=== PATIENT | female | born 1995 | race Caucasian/White ===

== ENCOUNTER 2018-07-02 19:02 | Emergency (ER) | payer OTHER ==
--- NOTE | 2018-07-02 19:26 | EDPHY ---
H & P Time Seen by Provider: 07/02/18 19:13 HPI/ROS: HPI Wrist pain. Needs a work note. 23-year-old female. She is right-hand dominant. She presents to the emergency department by private vehicle. She reports that on March [id number] while living in [place] she fell backwards on outstretched and dorsiflex wrists and hands. He sustained injuries to both wrists. No fracture was clearly identified. She continues to have pain in the right wrist made worse with dorsiflexion of the right wrist. She is asking for a work note the documents that these injuries did not occur her at her current job and that there is no evidence of significant injury. She denies any new trauma or new wrist pain. ROS: Constitutional: No fever, no chills. No weakness. Musculoskeletal: No back pain. No neck pain. As above. Skin: No rashes. Neurological: No headache. No focal weakness or altered sensation. Past medical history: Cholecystectomy, . Social history: Nonsmoker. She is here by herself. No alcohol. Physical Exam: General Appearance: Alert, no distress. This patient is responding to questions appropriately and in full sentences. This patient appears well- hydrated and well-nourished. Head: Normocephalic atraumatic. Eyes: Pupils equal and round no pallor or injection. No lid edema, erythema or injection. Right hand and wrist exam: The skin is closed. The soft tissues are normal. She has some vague and mild pain over the distal radial dorsal aspect on palpation. This is made more uncomfortable with dorsiflexion. She has no snuffbox tenderness on palpation. No pain elicited by axial compression of her right thumb. The bony aspects of the right hand and wrist are otherwise nontender on palpation. No bony deformity noted on palpation. No ecchymosis, edema, erythema, warmth noted. The right hand, wrist and upper extremity are neurovascularly intact. Left hand and wrist exam: No bony tenderness on palpation. No deformity noted. No pain on Melara or palmar flexion of the right wrist. No concerning soft tissue changes. The left hand and upper extremity are neurovascularly intact. Neurological: Motor sensory function is grossly intact. Cranial nerves are normal. Gait is normal. Skin: Warm and dry, no rashes. Extremities are symmetrical. All joints range without pain or impingement except noted. Psychiatric: No agitation. No depression. Database: EKG: Imaging: Right wrist x-ray series: Negative for fracture, subluxation, dislocation. Interpreted by me. Procedures: Emergency department course: Triage vital signs reviewed. Patient was sent for right wrist x-ray series: 7:35 p.m., the patient was re-evaluated, resting comfortably at this time. Results of her x-rays discussed. I explained to her that I would document that she does not have any radiographic evidence of significant injury to her right wrist. She feels comfortable being discharged. Follow-up and return to emergency department precautions were reviewed with her. All of her questions were answered. She was discharged from the emergency department in good condition. Differential Diagnosis: The differential diagnosis on this patient includes but is not limited to right wrist arthritis, right wrist sprain. Navicular/scaphoid bone fracture, acute fracture subluxation, dislocation, carpal tunnel syndrome unlikely. This represents a partial list of diagnoses considered. These considerations are based on history, physical exam, past history, reassessment and diagnostic testing. Smoking Status: Current every day smoker Constitutional: Initial Vital Signs Temperature (C) 36.9 C 07/02/18 19:09 Heart Rate 100 07/02/18 19:09 Respiratory Rate 16 07/02/18 19:09 Blood Pressure 122/84 H 07/02/18 19:09 O2 Sat (%) 95 07/02/18 19:09 O2 Delivery Mode Room Air Allergies/Adverse Reactions: No Known Allergies Allergy (Unverified 07/02/18 19:15) Home Medications: Medication Instructions Recorded NK [No Known Home Meds] 07/02/18 Medical Decision Making - Diagnostics Imaging Results: Imaging Impressions Wrist X-Ray 07/02/18 19:17 Impression: Negative right hand radiographs. No fracture or periostitis identified. Comment: If prior films become available, direct comparison can be made. Departure - Departure Disposition: Home, Routine, Self-Care Clinical Impression: Right wrist pain Condition: Good Instructions: Wrist Injury (ED) Additional Instructions: Read and follow provided instructions. There is no radiographic evidence of a significant injury to your right wrist. Follow-up with your primary care physician or workman's Comp physician in 1-2 days for re-evaluation. Ibuprofen dosin mg every 6 hours with meals for the next 3 days only. Take only as needed for pain. Return to the emergency department for worsening symptoms or other serious concerns. Referrals: NONE *PRIMARY CARE P,. [Primary Care Provider] - As per Instructions Stand Alone Forms: Statement of Treatment
[2018-07-02 21:27] VITALS: BP 124/78
== END 2018-07-02 20:20 | disposition home or self-care (01) ==
LOC: CED 19:02
DX: S69.91XA Unspecified injury of right wrist, hand and finger(s), initial encounter (principal); W19.XXXA Unspecified fall, initial encounter
CPT/HCPCS: 73110-PO; 99283-ER

== ENCOUNTER 2018-07-04 06:23 | Emergency (ER) | payer OTHER ==
--- NOTE | 2018-07-04 06:56 | EDPHY ---
H & P Stated Complaint: Needs a note for work-see previous admission. Time Seen by Provider: 07/04/18 06:47 HPI/ROS: CHIEF COMPLAINT: Work note HISTORY OF PRESENT ILLNESS: Patient is a 23-year-old female who fell in February while she was living in [place] and injured both wrists. She has had chronic right wrist pain since that time. She states that she was told she either broke her radius or maybe the bones and was seen by specialist who created a specially a molded wrist brace for her right hand. Her pain has improved over time and she now only wears the brace at night. 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 She states that it does not hurt her to use it as she works. Her employer however is concerned about a pre-existing condition and sent her here to get a note saying that the injury happened before she started this job. She was seen here yesterday and had x-rays done of her wrist that were negative. She was given a note saying that she was seen but not stating that this was a preexisting condition. She showed up to work today in the employer did not feel that her note was acceptable and sent her back. Severity: Moderate Modifying factors: None REVIEW OF SYSTEMS: Constitutional: denies: chills, fever, recent illness, recent injury EENTM: denies: blurred vision, double vision, nose congestion Respiratory: denies: cough, shortness of breath Cardiac: denies: chest pain, irregular heart rate, lightheadedness, palpitations Gastrointestinal/Abdominal: denies: abdominal pain, diarrhea, nausea, vomiting, blood streaked stools Genitourinary: denies: dysuria, frequency, hematuria, pain Musculoskeletal: See HPI Skin: denies: lesions, rash, jaundice, bruising Neurological: denies: headache, numbness, paresthesia, tingling, dizziness, weakness Hematologic/Lymphatic: denies: blood clots, easy bleeding, easy bruising Immunologic/allergic: denies: HIV/AIDS, transplant 10 systems reviewed and negative except as noted EXAM: GENERAL: Disheveled, overweight and in no acute distress. HEAD: Atraumatic, normocephalic. EYES: Pupils equal round and reactive to light, extraocular movements intact, ENT: TMs normal, nares patent, oropharynx clear without exudates. Moist mucous membranes. NECK: Normal range of motion, supple without lymphadenopathy or JVD. LUNGS: Breath sounds clear HEART: Regular rate and rhythm ABDOMEN: Soft, nontender, normoactive bowel sounds. No guarding, no rebound. No masses appreciated. BACK: No CVA tenderness, no spinal tenderness, step-offs or deformities EXTREMITIES: Normal range of motion, no pitting or edema. No clubbing or cyanosis. No bony tenderness. No pain with axial loading. No snuffbox tenderness. Normal flexion and extension of wrist. No obvious swelling or deformity. No lacerations or abrasions. No erythema. NEUROLOGICAL: Cranial nerves II through XII grossly intact. Normal speech, normal gait. 5/5 strength, normal movement in all extremities, normal sensation , PSYCH: Normal mood, normal affect. SKIN: Warm, dry, normal turgor, no visible rashes or lesions. Source: Patient Exam Limitations: No limitations - Personal History LMP (Females 10-55): 15-21 Days Ago Current Tetanus/Diphtheria Vaccine: Yes Current Tetanus Diphtheria and Acellular Pertussis (TDAP): Yes Tetanus Vaccine Date: 2016 - Medical/Surgical History Hx Asthma: No Hx Chronic Respiratory Disease: No Hx Diabetes: No Hx Cardiac Disease: No Hx Renal Disease: No Hx Cirrhosis: No Hx Alcoholism: No Hx HIV/AIDS: No Hx Splenectomy or Spleen Trauma: No Other PMH: cholecystectomy, x1, marijuana, depression - Family History Significant Family History: No pertinent family hx - Social History Smoking Status: Current every day smoker Alcohol Use: Sober Drug Use: None Constitutional: Initial Vital Signs Temperature (C) 36.6 C 07/04/18 07:03 Heart Rate 81 07/04/18 07:03 Respiratory Rate 20 07/04/18 07:03 Blood Pressure 133/98 H 07/04/18 07:03 O2 Sat (%) 97 07/04/18 07:03 O2 Delivery Mode Room Air Allergies/Adverse Reactions: No Known Allergies Allergy (Verified 07/04/18 06:24) Home Medications: Medication Instructions Recorded NK [No Known Home Meds] 07/02/18 Medical Decision Making ED Course/Re-evaluation: The patient has been using her wrist daily for several months without difficulty. She does still wear her wrist brace at night to help with her chronic pain. I feel that she is fit to return to work at this time as tolerated and this is what she desires. I will give her a work note. Differential Diagnosis: Partial list of the Differential diagnosis considered include but were not limited to; chronic wrist pain, sprain, fracture, subluxation and although unlikely based on the history and physical exam, I also considered infection, foreign body. Departure - Departure Disposition: Home, Routine, Self-Care Clinical Impression: NOTE FOR WORK WORK, Chronic wrist pain Condition: Fair Instructions: Return to Work Instructions (ED) Referrals: [facility],. [Clinic] - As per Instructions Stand Alone Forms: Work Limited Duty
[2018-07-04 07:05] VITALS: BP 133/98
== END 2018-07-04 07:03 | disposition home or self-care (01) ==
LOC: CED 06:23
DX: Z02.79 Encounter for issue of other medical certificate (principal); M25.531 Pain in right wrist; G89.29 Other chronic pain
CPT/HCPCS: 99282-ER